=== PATIENT | female | born 1960 | race Caucasian/White ===

== ENCOUNTER → 2024-12-20 15:09 | Outpatient (REF) | payer OTHER, SELFPAY | LOC: MRI 3T 15:09 | PROVIDERS: ATTENDING PHYSICIAN Nurse Practitioner Primary Care; FAMILY PHYSICIAN Internal Medicine | DX: G35 Multiple sclerosis (principal); G37.9 Demyelinating disease of central nervous system, unspecified; M54.14 Radiculopathy, thoracic region | CPT/HCPCS: 72157; A9575 ==

== ENCOUNTER → 2024-12-30 07:41 | Outpatient (REF) | payer OTHER, SELFPAY | LOC: MRI 07:41 | PROVIDERS: ATTENDING PHYSICIAN Nurse Practitioner Primary Care; FAMILY PHYSICIAN Internal Medicine | DX: G35 Multiple sclerosis (principal); G37.9 Demyelinating disease of central nervous system, unspecified; R29.898 Other symptoms and signs involving the musculoskeletal system; M50.90 Cervical disc disorder, unspecified, unspecified cervical region; M54.12 Radiculopathy, cervical region | CPT/HCPCS: 70553; 72156; A9575 ==